=== PATIENT | female | born 1990 | race Caucasian/White ===

== ENCOUNTER 2022-12-14 08:10 | Emergency (ER) | payer OTHER ==
[2022-12-14] MEDS ORDERED: Dexamethasone 10 MG/ML VIAL ONE (08:38)
[2022-12-14] MEDS ORDERED: Acetaminophen 500 MG TAB ONE (08:38)
[2022-12-14] MEDS ORDERED: diphenhydrAMINE 50 MG/ML VIAL ONE (08:39)
[2022-12-14] MEDS ORDERED: Prochlorperazine 10 MG/2 ML VIAL ONE (08:39)
== END 2022-12-14 10:16 | disposition home or self-care (01) ==
LOC: CSHERS 08:10
DX: R51.9 Headache, unspecified (principal)
CPT/HCPCS: 70450; 96374; 96375; J0780; J1100; J1200